=== PATIENT | male | born 1940 | race Caucasian/White ===

== ENCOUNTER → 2019-10-30 | Day surgery (SDC) | payer MEDICARE, OTHER ==
[2019-10-26 12:59] LABS: BASOPHILS % 0.4 % (0.0-1.0); EOSINOPHILS # (AUTO) 0.1 (0.0-0.4); HEMATOCRIT 34.4 % (38.2-49.6); HEMOGLOBIN 10.8 g/dL (14.0-18.0); LYMPHOCYTES % 20.3 % (18.0-39.1); MEAN CORPUSCULAR HEMOGLOBIN 28.5 pg (28-32); MEAN CORPUSCULAR HGB CONC 31.4 g/dL (31-35); MEAN CORPUSCULAR VOLUME 90.8 fL (81-99); MONOCYTES # (AUTO) 0.8 (0.2-0.8); MONOCYTES % 8.3 % (4.4-11.3); NEUTROPHILS # (AUTO) 6.8 (2.1-6.9); NEUTROPHILS % 69.7 % (38.7-80.0); PLATELET COUNT 260 x10e3/uL (140-360); RED BLOOD COUNT 3.79 x10e6/uL (4.3-5.7); RED CELL DISTRIBUTION WIDTH 13.5 % (11.7-14.4)
[2019-10-26 13:19] LABS: ANION GAP 15.7 mmol/L (8-16); CALCIUM 9.7 mg/dL (8.4-10.2); CREATININE, SERUM 1.33 mg/dL (0.72-1.25); POTASSIUM 4.7 mmol/L (3.5-5.1)
--- NOTE | 2019-10-26 14:20 | Diagnostic Imaging Report ---
EXAMINATION: CHEST 2 VIEWS INDICATION: Preop for surgery. ^[id number] ^1320 ^PRE OP COMPARISON: None FINDINGS: TUBES and LINES: None. LUNGS: Lungs are well inflated. Lungs are clear. There is no evidence of pneumonia or pulmonary edema. PLEURA: No pleural effusion or pneumothorax. HEART AND MEDIASTINUM: Moderate size retrocardiac hiatal hernia. The cardiomediastinal silhouette is otherwise unremarkable. BONES AND SOFT TISSUES: No acute osseous lesion. Soft tissues are unremarkable. UPPER ABDOMEN: No free air under the diaphragm. IMPRESSION: Moderate size retrocardiac hiatal hernia. No acute thoracic abnormality. Signed by: Dr. Marc Murray M.D. on 10/26/2019 2:16 PM
[~2019-10-30] MED LIST: ACETAMINOPHEN/CODEINE 300MG - 30MG TAB ONE; ASPIRIN81 MG PO; ATORVASTATIN CA20 MG PO; BUPIVACAINE HCL 0.5% INJ 30 ML VIAL INJ ONE; CEFAZOLIN SOD 1 GM/NS 50ML 100 ML IV ONE; DEXAMETHASONE SOD PHOS INJ 4 MG/ML VIAL ONE; FAMOTIDINE20 MG PO; FENTANYL CITRATE/PF 100MCG/2 ML INJ ONE; FINASTERIDE5 MG PO; GLYCOPYRROLATE INJ 0.2 MG/ML VIAL ONE; LIDOCAINE HCL (LTA) 4 ML SOLN ONE; LIDOCAINE HCL 2% LOCAL INJ 5 ML SDV VIAL INJ ONE; LISINOPRIL10 MG PO; METFORMIN HCL500 MG PO; METOPROLOL SUCC50 MG PO; NEOSTIGMINE 1 MG/ML 10ML VIAL ONE; NITROGLYCERIN0.4 MG SL; ONDANSETRON HCL INJ 2MG/ML 2ML 2 MG/ML VIAL ONE; PROPOFOL IV EMULSION 10 MG/ML 20 ML VIAL ONE; ROCURONIUM BROMIDE 10 MG/ML 5ML VIAL IV ONE; SEVOFLURANE INHAL SOLN 250 ML PEN BTL ONE; ZETIA10 MG PO
[2019-10-30 13:05] VITALS: BP 163/85
--- NOTE | 2019-10-30 15:14 | Operative Report ---
DATE OF PROCEDURE: 10/30/2019 SURGEON: Reed Kim MD PREOPERATIVE DIAGNOSES: 1. Paraesophageal hernia. 2. Chronic gastroesophageal reflux disease. 3. Coronary artery disease. 4. Type 2 diabetes mellitus. POSTOPERATIVE DIAGNOSES: 1. Paraesophageal hernia. 2. Chronic gastroesophageal reflux disease. 3. Coronary artery disease. 4. Type 2 diabetes mellitus. PREOPERATIVE INDICATION: Treat disease, prevent complications related to paraesophageal hernia. PROCEDURES: Laparoscopic paraesophageal hernia with Toupet fundoplication, gastropexy, (CPT 68983) ANESTHESIA: General. EMBEDDED ENGINEER: Denis Lozano, hand frame surgical elastic knitter (needed due to complexity of case). FLUIDS: 1 L crystalloid. ESTIMATED BLOOD LOSS: 40 mL. DRAINS: None. COMPLICATIONS: None. SPECIMENS: Hernia sac. GRAFTS: None. FINDINGS: Extremely large paraesophageal hernia with adhesions as well as thickened hernia sac. PROCEDURE IN DETAIL: The patient was brought to the operating room and was intubated under general endotracheal anesthesia. He was sterilely prepped and draped in the usual fashion. A preprocedure pause was performed identifying the patient, use of perioperative antibiotics, intended procedure, and staff surgeon. Access was gained via a 5 mm left subcostal incision using a Veress needle. The abdomen was insufflated. Four additional trocars were placed in the standard positions. We noted a very large patulous paraesophageal hernia. I spent a great deal of time dissecting out the hernia using a Harmonic Scalpel as well as the [place] LigaSure device. We mobilized the proximal greater curvature by ligating the short gastric and posterior short gastric vessels. After about 30 to 40 minutes of dissection, I was able to remove several portions of the hernia sac in order to identify proper structures. I was able to reduce the esophagus into the intra-abdominal portion to about 3 cm of intra-abdominal esophageal length. I then repaired the hiatal hernia with 2-0 Surgidac suture posteriorly as well as anteriorly until the defect was repaired without too much tension. I then did a 270-degree Toupet fundoplication by wrapping the fundus around itself and suturing it to the anterior portion of the esophagus using 2-0 Surgidac suture over a length of about 2 cm. I also placed a posterior suture between the posterior fundus and the posterior screws. Next, we placed gastropexy sutures in the distal greater curvature and sutured this to the anterior abdominal wall for a total of two sutures in order to prevent reherniation of the stomach into the thoracic cavity. Once that was done, I closed the large port site with 0 Vicryl sutures using a Alec-Tricia technique. We then desufflated the abdomen, removed the liver retractor and removed the trocars. Incision sites were closed with 4-0 Monocryl suture in a subcuticular fashion. Dermabond dressings were applied. A 0.25% bupivacaine was used both at the preperitoneal incision sites. The patient tolerated the procedure well. Type of wound is type 1, clean. All surgical sponge and instrument counts were correct. Reed Kim MD Jamie/JUSTINL /[id number]
== END | disposition home or self-care (01) ==
LOC: OR 06:06
PROVIDERS: ATTEND Surgery
DX: K44.9 Diaphragmatic hernia without obstruction or gangrene (principal); K21.9 Gastro-esophageal reflux disease without esophagitis; I25.10 Atherosclerotic heart disease of native coronary artery without angina pectoris; I10 Essential (primary) hypertension; E11.9 Type 2 diabetes mellitus without complications; Z01.810 Encounter for preprocedural cardiovascular examination; Z01.812 Encounter for preprocedural laboratory examination; Z01.818 Encounter for other preprocedural examination; Z11.59 Encounter for screening for other viral diseases; Z79.84 Long term (current) use of oral hypoglycemic drugs; Z79.82 Long term (current) use of aspirin
CPT/HCPCS: 36415 ×2; 43281; 71046; 80048; 82948; 85025; 93005; J0690; J1100; J2001; J2405; J2704; J2710; J3010; U0002